=== PATIENT | male | born 1995 | race Caucasian/White ===

== ENCOUNTER 2025-03-10 11:17 | Emergency (ER) | payer MEDICAID, SELFPAY ==
[2025-03-10 11:17] VITALS: BMI 27.2
[2025-03-10 12:10] VITALS: BP 130/66; PULSE 78; RESP 18; TEMP 36.9; O2SAT 99
--- NOTE | 2025-03-10 12:13 | EDNOTE_ITS ---
<Statement entered by Dorita Cuellar MD - 03/11/25 12:35> As co-signing physician, I was present and available for consult prn. I concur with the plan and care as documented by the midlevel provider. ED Skin Abcess FB-RME/HPI General Chief complaint: Skin/Abscess/Foreign Body Stated complaint: POISON OAK EXPOSURE Time Seen by Provider: 03/10/25 12:14 Source: patient Arrival date/time: 03/10/25 11:17 29-year-old male with no known medical history presents to the emergency room with a chief complaint of a rash to his lower extremities and groin after an exposure to poison oak that occurred 12 days ago. Mode of arrival: ambulatory Limitations: no limitations Related Data Allergies Allergy/AdvReac Type Severity Reaction Status Date / Time NKA* Allergy Uncoded 03/10/25 11:18 Review of Systems Review of Systems Systems Reviewed: All systems reviewed, normal except as documented Constitutional Constitutional: Reports system reviewed and no additional complaints, except as documented, Denies fatigue, Denies fever(s), Denies headache(s) and Denies weakness Eyes Eyes: Reports system reviewed and no additional complaints, except as documented, Denies blurry vision, Denies change in vision and Denies itchy eyes ENT Ears, Nose, Mouth, and Throat: Reports system reviewed and no additional complaints, except as documented, Denies otalgia, Denies headache(s), Denies lip swelling, Denies nasal congestion, Denies throat swelling, Denies tongue swelling and Denies vertigo Cardiovascular Cardiovascular: Reports system reviewed and no additional complaints, except as documented, Denies chest pain, Denies dyspnea and Denies dyspnea on exertion Respiratory Respiratory: Reports system reviewed and no additional complaints, except as documented, Denies chest congestion, Denies cough, Denies dyspnea, Denies dyspne a on exertion and Denies wheezing Gastrointestinal Gastrointestinal: Reports system reviewed and no additional complaints, except as documented, Denies abdominal pain, Denies cramping, Denies nausea and Denies vomiting Genitourinary Genitourinary: Reports system reviewed and no additional complaints, except as documented, Denies dysuria and Denies hematuria Musculoskeletal Musculoskeletal: Reports system reviewed and no additional complaints, except as documented and Denies back pain Integumentary/Breasts Skin/Breast: Reports system reviewed and no additional complaints, except as documented and Denies wounds Neurologic Neurologic: Reports system reviewed and no additional complaints, except as documented, Denies confusion, Denies headache(s), Denies lack of coordination, Denies vertigo and Denies weakness Psychiatric Psychiatric: Reports system reviewed and no additional complaints, except as documented, Denies anxiety, Denies confusion, Denies depression, Denies paranoia, Denies suicidal ideation and Denies tactile hallucinations Endocrine Endocrine: Reports system reviewed and no additional complaints, except as documented and Denies fatigue Hematologic/Lymphatic Hematologic/Lymphatic: Reports system reviewed and no additional complaints, except as documented and Denies lymphadenopathy Allergic/Immunologic Allergic/Immunologic: Reports system reviewed and no additional complaints, except as documented, Denies GI upset with certain foods, Denies itchy eyes, Denies lip swelling, Denies seasonal rhinorrhea, Denies throat swelling, Denies tongue swelling, Reports urticaria and Denies wheezing Past Medical History Social History SMOKING STATUS: Never smoker ED Exam General Limitations: Present no limitations General appearance: Present alert and in no apparent distress Head Head exam: Present atraumatic Eye Eye exam: Present normal appearance, PERRL and EOMI ENT ENT exam: Present normal exam, normal oropharynx and mucous membranes moist Neck Neck exam: Present normal inspection, full ROM and trachea midline Chest Chest inspection: Present normal inspection and symmetric chest wall rise Respiratory Respiratory exam: Present normal lung sounds bilaterally Cardiovascular Cardiovascular exam: Present regular rate, normal rhythm and normal heart sounds; Absent bradycardia, tachycardia or irregular rhythm Abdominal Exam Abdominal exam: Present soft and normal bowel sounds; Absent tenderness Extremities Exam Extremities exam: Present normal inspection and full ROM Back Exam Back exam: Present normal inspection and full ROM Neurological Exam Neurological exam: Present alert, oriented X3 and CN II-XII intact Psychiatric Psychiatric exam: Present normal affect and normal mood Skin Skin exam: Present warm, dry, intact, normal color and rash Expanded Skin Exam Type of lesion: Present rash Distribution: Present LLE and RLE Description: Present tenderness and erythematous; Absent swelling Course Quality Measures none Orders Category Date Time Status Dexamethasone Inj [Decadron Inj] Med 03/10/25 12:10 Discontinued 10 mg IM X1 ONE DiphenhydrAMINE [Benadryl] Med 03/10/25 12:10 Discontinued 25 mg PO X1 ONE Famotidine [Pepcid] Med 03/10/25 12:10 Discontinued 20 mg PO X1 ONE Vital Signs Vital signs: Vital Signs Temperature 98.5 F 03/10/25 12:10 Pulse Rate 78 03/10/25 12:10 Respiratory Rate 18 03/10/25 12:10 Blood Pressure 130/66 03/10/25 12:10 Pulse Oximetry (%) 99 03/10/25 12:10 Oxygen Delivery Method Room Air 03/10/25 12:10 Skin / Abscess / Foreign Body MDM Narrative MDM Narrative:: 29-year-old male with no known medical history presents to the emergency room with a chief complaint of a rash to his lower extremities and groin after an exposure to poison oak that occurred 12 days ago. Patient is hemodynamically stable and in no apparent distress Physical examination shows a rash to the bilateral lower extremities and groin area. Patient states he started this rash for the last 12 [place] Patient states his symptoms have improved since he began But he is still having a lot of itchiness to the area. Medication was g iven to the patient with some improvement to his symptoms Patient was discharged and educated to follow-up with primary care provider in the next 24 to 48 hours and return to the emergency room for any evidence of worsening signs or symptoms Patient data External records reviewed:: [facility] previous records Clinical information provided by:: patient Social determinants that could affect healthcare access:: none Patient has the following chronic illnesses:: No chronic illness How is presenting disease/condition affected by chronic disease/condition?: no chronic disease Evaluation data The following diagnostics were reviewed and interpreted by me:: lab results and radiology exam(s) Lab and/or radiology exams considered but not ordered:: Labs and radiology exams considered and ordered Interpretation Summary: N/A Medications / Prescriptions Medications or Prescriptions considered but not ordered:: Medication given Medication administrations:: Medication Administration History Discontinued Medications Dexamethasone Sodium Phosphate (Dexamethasone Sod Phos Inj 10 Mg/Ml Vial) 10 mg IM X1 ONE Stop: 03/10/25 12:11 Last Admin: 03/10/25 12:36 Dose: 10 mg Documented By: ROSMERY Diphenhydramine HCl (Diphenhydramine Elix 25 Mg/10 M[place] [facility] [place] mg PO X1 ONE Stop: 03/10/25 12:11 Last Admin: 03/10/25 12:35 Dose: 25 mg Documented By: ROSMERY Famotidine (Famotidine 20 Mg Tablet) 20 mg PO X1 ONE Stop: 03/10/25 12:11 Last Admin: 03/10/25 12:35 Dose: 20 mg Documented By: MF Medication given Consultations Consultation(s) initiated? (list below): No Diagnosis Skin/Abscess Differential Diagnosis: abscess of skin or subcutaneous tissue, eczema, insect bites and contact dermatitis Most likely diagnosis given after review of the tests above:: Contact dermatitis due to poison oak Admission Indicated Admission indicated?: not indicated Admission Request Was there a request for admission?: No Disposition Plan Disposition Plan: Discharge Discharge Attestation Discharge Attestation: The patient and all family members were given an opportunity to ask questions and understood the discharge instructions. Discharge instructions specifically effects, indications for sooner follow up or return to the emergency department, and the expected course of current diagnosis. Patient condition: Stable Discharge Plan Plan Patient Disposition: HOME (Self Care) Discharge Disposition comment: Stable Problem List Clinical Impression: Dermatitis due to plants, including poison maurisio, sumac, and oak Patient/Caregiver Discharge Instructions Education Materials: ED Poison [place] Rash Additional Instructions: Please follow-up with your primary care provider in the next 24 to 48 hours For any evidence of worsening signs or symptoms return to emergency room immediately Print Language: Greek Stand Alone Forms: Callie Award Info., Patient Portal Info Letter PA/MOHAMUD Supervising Physician LES/MOHAMUD Supervising Physician: Dr. CUELLAR
[2025-03-10] MEDS: FAMOTIDINE 20 MG TABLET PO (12:35)
[2025-03-10] MEDS: DiphenhydrAMINE ELIX 25 MG/10 ML UDC PO (12:35)
[2025-03-10] MEDS: DEXAMETHASONE SOD PHOS INJ 10 MG/ML VIAL IM (12:36)
== END 2025-03-10 14:02 | disposition home or self-care (01) ==
LOC: SERX 12:56
PROVIDERS: Emergency Provider Emergency Medicine
DX: L23.7 Allergic contact dermatitis due to plants, except food (principal)
CPT/HCPCS: 96372; 99282; J1100; A9270